=== PATIENT | female | born 1950 | race Caucasian/White ===

== ENCOUNTER 2021-08-04 07:02 | Day surgery (SDC) | payer BC, MEDICAID ==
[2021-07-30 16:28] LABS: BASOPHILS # (AUTO) 0.1 X10'3 (0-0.2); BASOPHILS % (AUTO) 1.1 % (0-1); EOSINOPHILS # (AUTO) 0.2 X10'3 (0-0.9); EOSINOPHILS % (AUTO) 2.4 % (0-6); HEMATOCRIT 38.1 % (35.0-45.0); HEMOGLOBIN 12.4 g/dl (12.0-16.0); LYMPHOCYTES # (AUTO) 2.2 X10'3 (1.1-4.8); LYMPHOCYTES % (AUTO) 29.8 % (21-51); MEAN CORPUSCULAR HEMOGLOBIN 29.4 PG (27.0-31.0); MEAN CORPUSCULAR HGB CONC 32.6 g/dL (33.0-36.5); MEAN PLATELET VOLUME 8.5 FL (7.4-10.4); MONOCYTES # (AUTO) 0.7 X10'3 (0-0.9); MONOCYTES % (AUTO) 10.2 % (2-12); NEUTROPHILS # (AUTO) 4.1 X10'3 (1.8-7.7); NEUTROPHILS % (AUTO) 56.5 % (42-75); PLATELET COUNT 263 X10'3 (140-440); RED BLOOD COUNT 4.23 X10'6 (4.20-5.60); RED CELL DISTRIBUTION WIDTH 14.5 % (11.5-14.5); WHITE BLOOD COUNT 7.3 X10'3 (4.5-11.0)
[2021-07-30 16:41] LABS: PARTIAL THROMBOPLASTIN TIME 26 SECONDS (22-32)
[2021-07-30 16:43] LABS: ALANINE AMINOTRANSFERASE 20 U/L (12-78); ALBUMIN 4.2 G/DL (3.4-5.0); ALBUMIN/GLOBULIN RATIO 1.1 (1.1-1.5); ALKALINE PHOSPHATASE 125 IU/L (46-116); ANION GAP 10 (8-16); ASPARTATE AMINO TRANSFERASE 17 U/L (10-37); BILIRUBIN,TOTAL 0.3 MG/DL (0.1-1.0); BLOOD UREA NITROGEN 17 MG/DL (7-18); BUN/CREATININE RATIO 9.7 (6.6-38.0); CALCIUM 9.2 MG/DL (8.5-10.1); CHLORIDE 104 MMOL/L (99-107); CREATININE 1.75 MG/DL (0.40-0.90); GLUCOSE 114 MG/DL (70-104); POTASSIUM 3.6 MMOL/L (3.5-5.1); SODIUM 144 MMOL/L (135-145); TOTAL PROTEIN 8.1 G/DL (6.4-8.2); eGFR 28 ML/MIN
[2021-08-04] VITALS (8 sets, daily range): BP systolic 116–136; BP diastolic 57–75
[~2021-08-04] VITALS: Ht 157.5 cm; Wt 70.4 kg
[~2021-08-04 07:02] MED LIST: ALBU8.5H17 IH; ASPI-529 PO; ASPI-845 PO; BAC10T PO; CELE-193 PO; CITA20TA28 PO; DIPH25CA83 PO; FLUT16SP2 NS; FURO80TA87 PO; NORCO10T PO; OMEP-84 PO; TRAZ-91 PO
[2021-08-04] MEDS ORDERED: LORazepam 0.5 MG tablet PO PRN (07:25)
[2021-08-04] MEDS ORDERED: normal saline 1,000 ML IV SCH (07:25)
[2021-08-04] MEDS ORDERED: nitroGLYCERIN 0.4mg SUBLingual tab SL PRN (07:25)
[2021-08-04] MEDS ORDERED: diphenhydrAMINE 25mg capsule PO PRN (07:25)
[2021-08-04] MEDS ORDERED: POTA10TA36 (07:32)
[2021-08-04] MEDS ORDERED: CARV6.253 PO (07:32)
[2021-08-04] MEDS ORDERED: BACL20TA PO (07:32)
[2021-08-04] MEDS ORDERED: PANT40TA54 PO (07:36)
[2021-08-04] MEDS ORDERED: FURO40TA4 PO (07:36)
[2021-08-04] MEDS ORDERED: TRAZ150T78 PO (07:36)
[2021-08-04] MEDS ORDERED: AMLO10TA13 PO (07:36)
[2021-08-04] MEDS ORDERED: ATOR40TA72 PO (07:36)
[2021-08-04] MEDS ORDERED: CAL (07:45)
[2021-08-04] MEDS ORDERED: [UNRECOGNIZED DRUG - OTHER] (07:45)
[2021-08-04] MEDS ORDERED: SIME125C97 PO (07:45)
[2021-08-04] MEDS ORDERED: MAG (07:45)
[2021-08-04] MEDS ORDERED: CIME200T12 PO (07:45)
[2021-08-04] MEDS ORDERED: TUMERIC GINGER (07:45)
[2021-08-04] MEDS ORDERED: ZINC (07:45)
[2021-08-04] MEDS ORDERED: LIDOcaine 1% (10mg/ml)w/preservative injection 20ml MDV ONE (08:48)
[2021-08-04] MEDS ORDERED: fentaNYL/PF 50MCG/1 ML 2ML syringe ONE (08:48)
[2021-08-04] MEDS ORDERED: midazolam 1 mg/ML 2ml injection ONE (08:48)
[2021-08-04] MEDS ORDERED: iohexol 350 MG/ML 50ML vial IV ONE (08:48)
[2021-08-04] MEDS ORDERED: iohexol 350MG/ML 100ml bottle IV ONE (08:48)
[2021-08-04] MEDS ORDERED: acetaminophen 325mg tablet PO PRN (10:00)
[2021-08-04] MEDS ORDERED: proCHLORperazine 10 MG/2 ml inj IV PRN (10:00)
[2021-08-04] MEDS ORDERED: OXAZEpam 15mg capsule PO PRN (10:00)
[2021-08-04] MEDS ORDERED: ondansetron/PF 4mg/2ml inj IV PRN (10:00)
[2021-08-04] MEDS ORDERED: HYDROcodone/acetaminophen 10/325mg tab PO PRN (10:00)
[2021-08-04] MEDS ORDERED: HYDROcodone/acetaminophen 5mg/325mg tablet PO PRN (10:00)
[2021-08-04] MEDS ORDERED: normal saline 1000ml 1,000 ML IV SCH (10:00)
== END 2021-08-04 16:15 | disposition home or self-care (01) ==
LOC: SSTAY O 07:02
PROVIDERS: ATTEND Internal Medicine Cardiovascular Disease
DX: R94.39 Abnormal result of other cardiovascular function study (principal); I25.10 Atherosclerotic heart disease of native coronary artery without angina pectoris; J45.909 Unspecified asthma, uncomplicated; F32.9 Major depressive disorder, single episode, unspecified; K21.9 Gastro-esophageal reflux disease without esophagitis; G47.33 Obstructive sleep apnea (adult) (pediatric); F43.10 Post-traumatic stress disorder, unspecified; I10 Essential (primary) hypertension; Z88.8 Allergy status to other drugs, medicaments and biological substances; Z79.01 Long term (current) use of anticoagulants; Z90.710 Acquired absence of both cervix and uterus; Z98.890 Other specified postprocedural states; Z79.899 Other long term (current) drug therapy; Z98.51 Tubal ligation status
CPT/HCPCS: 36415; 71046; 80053; 85025; 85610; 85730; 93458; 99152; C1760; C1769; J1644; J2001; J2250; J3010; J7030; Q0163; Q9967; A4620; A6258

== ENCOUNTER 2023-10-06 08:49 | Day surgery (SDC) | payer BC, MEDICAID ==
[2023-10-02 11:27] LABS: BASOPHILS % (AUTO) 0.7 % (0-1); EOSINOPHILS # (AUTO) 0.1 X10'3 (0-0.9); LYMPHOCYTES # (AUTO) 1.7 X10'3 (1.1-4.8); LYMPHOCYTES % (AUTO) 26.6 % (21-51); MEAN CORPUSCULAR HEMOGLOBIN 27.2 PG (27.0-31.0); MEAN CORPUSCULAR HGB CONC 32.4 g/dL (33.0-36.5); MEAN CORPUSCULAR VOLUME 83.9 FL (78-98); MEAN PLATELET VOLUME 8.7 FL (7.4-10.4); MONOCYTES # (AUTO) 0.9 X10'3 (0-0.9); MONOCYTES % (AUTO) 13.4 % (2-12); NEUTROPHILS # (AUTO) 3.7 X10'3 (1.8-7.7); NEUTROPHILS % (AUTO) 57.3 % (42-75); PRE OP HEMATOCRIT 40.3 % (35.0-45.0); PRE OP PLATELET COUNT 199 X10'3 (140-440); PRE OP WHITE BLOOD COUNT 6.4 10'3 (4.8-10.8); RED CELL DISTRIBUTION WIDTH 20.8 % (11.5-14.5)
[2023-10-02 11:47] LABS: ALBUMIN 3.8 G/DL (3.4-5.0); ALBUMIN/GLOBULIN RATIO 1.1 (1.1-1.5); ALKALINE PHOSPHATASE 108 IU/L (46-116); BLOOD UREA NITROGEN 11 MG/DL (7-18); BUN/CREATININE RATIO 7.7 (10.0-20.0); CALCIUM 9.3 MG/DL (8.5-10.1); CHLORIDE 96 MMOL/L (99-107); CREATININE 1.43 MG/DL (0.40-0.90); PRE OP ALT 22 U/L (30-65); PRE OP ANION GAP 10 (8-16); PRE OP AST 27 U/L (10-37); PRE OP BILIRUB, TOTAL 0.2 MG/DL (0.0-1.0); PRE OP GLUCOSE 125 MG/DL (70-104); PRE OP SODIUM 133 MMOL/L (135-145); TOTAL CARBON DIOXIDE 27.1 MMOL/L (24-32); TOTAL PROTEIN 7.3 G/DL (6.4-8.2); eGFR 36 ML/MIN
[2023-10-02 11:54] LABS: ANISOCYTOSIS 3+; LARGE PLATELETS FEW; PLATELET ESTIMATE NORMAL
[2023-10-02 11:55] LABS: PRE OP POTASSIUM 3.2 MMOL/L (3.4-5.1)
[~2023-10-06] VITALS: Ht 149.9 cm; Wt 63.7 kg
[2023-10-06] VITALS (18 sets, daily range): BP systolic 94–132; BP diastolic 44–82; PULSE 58–77; RESP 10–16; TEMP 95.8–97.8; O2SAT 90–99
[~2023-10-06 08:49] MED LIST changes: +AMLO10TA13 PO; -ASPI-529 PO; -ASPI-845 PO; +ATOR40TA72 PO; -BAC10T PO; +BACL20TA PO; +CIME200T12 PO; -CITA20TA28 PO; -DIPH25CA83 PO; -FLUT16SP2 NS; +FURO40TA4 PO; -FURO80TA87 PO; +NEO EACHEYE; -NORCO10T PO; -OMEP-84 PO; +PANT40TA54 PO; +POLY EACHEYE; +POTA-206 PO; +TRAZ-251 PO; -TRAZ-91 PO; +TRAZ150T78 PO; +[UNRECOGNIZED DRUG - OTHER] EACHEYE; +cefazolin 2gm/D5W 100mL 100 ML IV ONE; +famotidine 20mg tablet PO ONE; +ringers solution, lacted 1,000 ML IV SCH; +tetracaine 1% (10mg/ml) pres. free inj. ONE; +tranexamic acid 650mg tablet PO ONE; +vancomycin/NS 1 GM in NS 250 ML IV ONE
[2023-10-06] MEDS ORDERED: BUPIVAcaine/PF 2.5mg/ml (0.25%) 10ml vial ONE (09:17)
[2023-10-06 10:52] LABS: ISTAT CREATININE 0.9 mg/dL (0.6-1.1); ISTAT HGB 12.6 g/dl (12.0-16.0); ISTAT IONIZED CALCIUM 1.24 mmol/L (1.03-1.32); ISTAT K 3.5 mmol/L (3.5-5.1); POC BUN/CREATININE RATIO 18.9 (6.6-38.0)
--- NOTE | 2023-10-06 11:00 | NUR ---
PT STATES SHE BATHED AND USED BACTROBAN FOR THE LAST 5 DAYS PER TOTAL JOINT REPLACEMENT RECOMMENDATIONS. PT DENIES DECREASED SENSATION TO HER RIGHT LEG, PEDAL PULSE 2+ AND PALPABLE. PT DID NOT WATCH THE DVD REGARDING TOTAL JOINT REPLACEMENT SHE HAS HAD SEVERAL IN THE PAST. Addendum: 10/06/23 at 1507 by Domonique Velarde RN Amended: Links added.
[2023-10-06] MEDS ORDERED: MIDAZolam 1mg/ml 10ml vial ONE (12:45)
[2023-10-06] MEDS ORDERED: desflurane 240ml liquid inh. IH ONE (12:45)
[2023-10-06] MEDS ORDERED: fentaNYL/PF 50MCG/1 ML 2ML syringe ONE ×2 (12:46→14:04)
[2023-10-06] MEDS ORDERED: tranexamic acid 100mg/ml inj. ONE (12:47)
[2023-10-06] MEDS ORDERED: ROPIVAcaine 0.5% (5mg/ml) 30ml vial ONE (12:47)
[2023-10-06] MEDS ORDERED: BUPIVACAINE/MELOXICAM 14 ML VIAL IL ONE (12:48)
[2023-10-06] MEDS ORDERED: propofol inj 20 ML IV ONE (13:36)
[2023-10-06] MEDS ORDERED: ondansetron/PF 4mg/2ml inj ONE (13:41)
[2023-10-06] MEDS ORDERED: LIDOcaine 1%/PF 5ML 10 MG/ML VIAL ONE ×4 (13:41)
[2023-10-06] MEDS ORDERED: acetaminophen 1,000mg/100ml IV 100 ML IV ONE (13:44)
[2023-10-06] MEDS ORDERED: dexamethasone sod phosphate 4mg/ml inj. ONE (13:49)
[2023-10-06] MEDS ORDERED: BUPIVAcaine 2.5mg/ml inj 50ml vial (contains preservative) ONE (15:08)
--- NOTE | 2023-10-06 15:35 | NUR ---
Received from OR via BED, accompanied by Anesthesiologist and report given by TACOS Anesthesiologist. PATIENT WAKING UP, NO S/S OF PAIN, V/S WNL, SCD ON, 20G TO LEFT AC, drsg to RIGHT KNEE C/D/I. GUTIÉRREZ CATHETER DRAINING CLEAR YELLOW URINE. Addendum: 10/06/23 at 1600 by Valentino Denny RN Amended: Links added.
[2023-10-06] MEDS ORDERED: naloxone 0.4 mg/ml inj IV PRN (15:55)
[2023-10-06] MEDS ORDERED: acetaminophen 325mg tablet PO PRN (15:55)
[2023-10-06] MEDS ORDERED: ondansetron/PF 4mg/2ml inj IV PRN (15:55)
[2023-10-06] MEDS ORDERED: diphenhydrAMINE 25mg capsule PO PRN ×2 (15:55)
[2023-10-06] MEDS ORDERED: HYDROmorphone inj. 0.5 MG/0.5 ML DISP.SYRIN IV PRN (15:55)
[2023-10-06] MEDS ORDERED: bisacodyl 10mg suppository rectal RC PRN (15:55)
[2023-10-06] MEDS ORDERED: traZODone 50mg tablet PO PRN (15:55)
[2023-10-06] MEDS ORDERED: magnesium hydroxide 30ml (MOM) UD suspension PO PRN (15:55)
[2023-10-06] MEDS ORDERED: albuterol 2.5 MG/3 ML nebule NEB PRN (15:55)
[2023-10-06] MEDS ORDERED: oxyCODONE IR 5mg (immed. release) tablet PO PRN (15:55)
[2023-10-06] MEDS: potassium cl 20mEq in 1/2 NS 1,000 ML IV SCH ×2 (15:55→17:09)
[2023-10-06] MEDS ORDERED: HYDROmorphone 1 mg/ml syringe IV PRN (15:55)
--- NOTE | 2023-10-06 16:24 | NUR ---
Patient in PACU . I have received report from Jevon and had the opportunity to ask questions and assume patient care.
--- NOTE | 2023-10-06 16:29 | NUR ---
PATIENT HAS MET ALL CRITERIA FOR TRANSFER TO ORTHO FLOOR. VSS. DRESSINGS INTACT. BED LOW, CALL LIGHT PRESENT AND 2 RAILS UP. RN PRESENT TO ACCEPT CARE OF PATIENT AND REPORT HAS BEEN CALLED. ALL QUESTIONS ANSWERED TO ACCEPTING RN. Addendum: 10/06/23 at 1653 by Valentino Denny RN Amended: Links added.
[2023-10-06] MEDS: ceFAZolin/D5W- 1GM premix 50 ML IV SCH ×2 (17:13→23:17)
--- NOTE | 2023-10-06 18:27 | NUR ---
Problems reprioritized. Patient report given, questions answered & plan of care reviewed with Mitzy.
--- NOTE | 2023-10-06 18:30 | NUR ---
Patient in room ORTHO 4013. I have received report from Phoebe MAYORGA and had the opportunity to ask questions and assume patient care.
--- NOTE | 2023-10-06 19:00 | NUR ---
she ate a sandwich and milk and yogurt since a late tray did not arrive Addendum: 10/07/23 at 0126 by Mitzy Reynoso RN Amended: Links added.
[2023-10-06] MEDS ORDERED: vancomycin/NS 1 GM ADD-VANTAGE 250 ML IV SCH (20:00)
[2023-10-06] MEDS ORDERED: atorvastatin 20mg tablet PO SCH (21:00)
[2023-10-06] MEDS ORDERED: traZODone 150mg tablet PO SCH (21:00)
[2023-10-06] MEDS ORDERED: sennosides 8.6mg tablet PO SCH (21:00)
[2023-10-06] MEDS: baclofen 10mg tablet PO SCH (21:16)
[2023-10-06] MEDS: acetaminophen 325mg tablet PO SCH (21:16)
[2023-10-07] VITALS (8 sets, daily range): BP systolic 107–122; BP diastolic 48–56; PULSE 64–79; RESP 16–20; TEMP 97.4–98.6; O2SAT 93–96
[2023-10-07] MEDS: acetaminophen 325mg tablet PO SCH ×3 (01:58→14:38)
[2023-10-07] MEDS: oxyCODONE IR 5mg (immed. release) tablet PO PRN ×3 (04:59→13:22)
[2023-10-07] MEDS: potassium cl 20mEq in 1/2 NS 1,000 ML IV SCH ×2 (05:02→15:55)
--- NOTE | 2023-10-07 06:00 | NUR ---
Report received from Mitzy MAYORGA and assumed care with Art MAYORGA as preceptor. Aubrie MAYORGA Addendum: 10/07/23 at 0948 by Aubrie Rajput RN Amended: Links added.
--- NOTE | 2023-10-07 06:33 | NUR ---
Problems reprioritized. Patient report given, questions answered & plan of care reviewed with Art MAYORGA.
[2023-10-07 06:58] LABS: BASOPHILS % (AUTO) 0.1 % (0-1); EOSINOPHILS % (AUTO) 0 % (0-6); HEMOGLOBIN 8.4 g/dl (12.0-16.0); LYMPHOCYTES # (AUTO) 0.9 X10'3 (1.1-4.8); LYMPHOCYTES % (AUTO) 7.1 % (21-51); MEAN CORPUSCULAR HGB CONC 32.2 g/dL (33.0-36.5); MONOCYTES # (AUTO) 0.6 X10'3 (0-0.9); MONOCYTES % (AUTO) 4.9 % (2-12); NEUTROPHILS # (AUTO) 11.1 X10'3 (1.8-7.7); NEUTROPHILS % (AUTO) 87.9 % (42-75); PLATELET COUNT 169 X10'3 (140-440); RED BLOOD COUNT 3.09 X10'6 (4.20-5.60); WHITE BLOOD COUNT 12.6 X10'3 (4.5-11.0)
[2023-10-07 07:26] LABS: ANION GAP 7 (8-16); CHLORIDE 103 MMOL/L (99-107); POTASSIUM 4.3 MMOL/L (3.5-5.1); SODIUM 137 MMOL/L (135-145); TOTAL CARBON DIOXIDE 27.4 MMOL/L (24-32)
[2023-10-07 07:43] LABS: ANISOCYTOSIS 2+; MICROCYTOSIS 1+; PLATELET ESTIMATE NORMAL
[2023-10-07] MEDS ORDERED: POLY OP SCH (08:00)
[2023-10-07] MEDS ORDERED: potassium chloride 10mEq ER tablet PO SCH (08:00)
[2023-10-07] MEDS ORDERED: [UNRECOGNIZED DRUG - OTHER] OP SCH (08:00)
[2023-10-07] MEDS ORDERED: amLODIPine 5mg tablet PO SCH (08:00)
[2023-10-07] MEDS ORDERED: NEO OP SCH (08:00)
[2023-10-07] MEDS ORDERED: famotidine 20mg tablet PO SCH (08:00)
[2023-10-07] MEDS ORDERED: furosemide 40mg tablet PO SCH (08:00)
[2023-10-07] MEDS ORDERED: pantoprazole 40mg Tablet.DR PO SCH (08:00)
[2023-10-07] MEDS ORDERED: celeCOXIB 100mg capsule PO SCH (08:00)
[2023-10-07] MEDS: baclofen 10mg tablet PO SCH ×2 (08:21→13:19)
[2023-10-07] MEDS ORDERED: aspirin 325mg tablet PO SCH (08:30)
--- NOTE | 2023-10-07 09:16 | NUR ---
Per EMR pt POD #1 s/p right TKA. Written high protein education with ONS coupons and RD contact information mailed to patient's address found in EMR d/t short staffing. Will continue to follow and provide verbal education as able. Addendum: 10/07/23 at [address] Amended: Links added.
--- NOTE | 2023-10-07 17:07 | NUR ---
Preceptee documentation: I have reviewed and agree with all interventions, assessments performed and documented by Jelly Georges RN. Preceptee Medication Administration: For this medication-pass time frame, all medication were reviewed, dispensed, administered and documented per hospital policy by Jelly Georges RN.
--- NOTE | 2023-10-07 19:47 | NUR ---
PATIENT DISCHARGED HOME WITH ALL HER BELONGINGS AND DISCHARGE PAPERWORK IN HER BAG. SHE WAS TAKEN TO HER DAUGHTER'S CAR IN W/C AND HELPED INTO THE CAR WITHOUT DIFFICULTY.
--- NOTE | 2023-10-07 19:52 | NUR ---
Problems reprioritized. Patient report given, questions answered & plan of care reviewed with JORGE.
== END 2023-10-07 19:53 | disposition home or self-care (01) ==
LOC: PAS 08:49 → EDSTATUS 11:45 → ORTHO 4S 16:30 → PAS 10-07 19:53
PROVIDERS: ATTEND Orthopaedic Surgery
DX: M17.11 Unilateral primary osteoarthritis, right knee (principal); G89.4 Chronic pain syndrome; J45.909 Unspecified asthma, uncomplicated; I12.9 Hypertensive chronic kidney disease with stage 1 through stage 4 chronic kidney disease, or unspecified chronic kidney disease; N18.30 Chronic kidney disease, stage 3 unspecified; F32.A Depression, unspecified; K21.9 Gastro-esophageal reflux disease without esophagitis; G89.18 Other acute postprocedural pain; Z79.899 Other long term (current) drug therapy; Z79.82 Long term (current) use of aspirin; Z96.652 Presence of left artificial knee joint; Z96.611 Presence of right artificial shoulder joint; Z96.612 Presence of left artificial shoulder joint; Z98.890 Other specified postprocedural states; Z90.710 Acquired absence of both cervix and uterus; Z90.49 Acquired absence of other specified parts of digestive tract; Z98.51 Tubal ligation status; Z88.8 Allergy status to other drugs, medicaments and biological substances; Z83.3 Family history of diabetes mellitus; Z82.49 Family history of ischemic heart disease and other diseases of the circulatory system; Z82.3 Family history of stroke
CPT/HCPCS: 20985; 27447; 36415; 64447; 80047; 80051; 80053; 85025; 87081; 97116; 97161; C1713; C1776; J0131; J0690; J1100; J2250; J2405; J2704; J2795; J3010; J3370; J3480; J3490; J7030; J7120; Z7506; Z7508; Z7512; 85008; 97530; A4215; A4615; A7000; C1758; G0378

== ENCOUNTER 2025-07-23 14:39 | Inpatient (IN) | payer BC, MEDICAID ==
[~2025-07-23] VITALS: Ht 162.6 cm; Wt 65.0 kg
[~2025-07-23 14:39] MED LIST changes: -cefazolin 2gm/D5W 100mL 100 ML IV ONE; -famotidine 20mg tablet PO ONE; -ringers solution, lacted 1,000 ML IV SCH; -tetracaine 1% (10mg/ml) pres. free inj. ONE; -tranexamic acid 650mg tablet PO ONE; -vancomycin/NS 1 GM in NS 250 ML IV ONE
[2025-07-23] MEDS ORDERED: charcoal/sorbitol 25GM/120ML oral SUSPension PO ONE (15:00)
[2025-07-23 15:24] LABS: MEAN PLATELET VOLUME 8.6 FL (7.4-10.4); RED CELL DISTRIBUTION WIDTH 14.4 % (11.5-14.5)
[2025-07-23] MEDS: charcoal, activated 50 GM/240 ML bottle PO ONE (15:34)
[2025-07-23 15:48] LABS: CREATININE 1.18 MG/DL (0.40-0.90); TOTAL CARBON DIOXIDE 29.9 MMOL/L (24-32); eCRCL 34 ML/MIN; eGFR 44 ML/MIN
--- NOTE | 2025-07-23 16:04 | Physician Documentation ---
History of Present Illness ~ Chief Complaint: Overdose Stated Complaint: INGESTION ERROR Time Seen by MD: 15:54 Primary Medical Doctor: Dolores MERRITT Mode of Arrival: POV, Ambulatory HPI This very pleasant 75-year-old female presents to the ED after accidentally ingesting 17 tabs of Tylenol extra-strength 500 mg had a proximally 1420 this afternoon. She was complaining of bad reflux and thought she was taking her normal pills but ingested the wrong pill container. She is very forthcoming about this accident and denies any intention to harm herself. Denies any symptoms at this time and says she feels fine. Day of Ingestion: Jul 23, 2025 Medication Reconciliation Allergies: Coded Allergies: ketorolac (Verified Adverse Reaction, Severe, UPSET STOMACH, 04/11/22) HEARTBURN, ABDOMINAL PAIN ibuprofen (Unverified Adverse Reaction, Unknown, UPSET STOMACH, 04/11/22) naproxen (Unverified Adverse Reaction, Unknown, UPSET STOMACH, 04/11/22) Scheduled Amlodipine Besylate (Amlodipine Besylate), 1 TAB PO DAILY, (Reported) Atorvastatin Calcium (Atorvastatin Calcium), 1 TAB PO HS, (Reported) Baclofen (Baclofen), 1 TAB PO TID, (Reported) Celecoxib* (Celebrex*), 2 CAP PO DAILY, (Reported) Cimetidine (Cimetidine), 400 MG PO QID, (Reported) Furosemide (Furosemide), 1 TAB PO QAM, (Reported) Pantoprazole Sodium (Pantoprazole Sodium), 1 TAB PO DAILY, (Reported) Potassium Chloride (K-Dur), 1 TAB PO DAILY, (Reported) Trazodone Hcl (Trazodone Hcl), 1 TAB PO HS, (Reported) [Ramiro/Poly/Dexopth ], 1 APPLIC EACHEYE DAILY, (Reported) Scheduled PRN Albuterol Sulfate (Proair Hfa), 2 PUFFS IH Q6H PRN for SOB or wheezing, (Reported) Trazodone HCl (Trazodone HCl), 1 TAB PO HS PRN for sleep, (Reported) Past Medical History Past Medical History: No Pertinent History Alcohol Use: None Drug Use: none Review of Systems All Other Systems at this time: Reviewed and Negative ROS As stated above in the HPI, otherwise all systems are reviewed and negative. Physical Exam Vital Signs: Temperature: 98.3, Heart Rate: 66, Respiratory Rate: 20, BP: 97/66, Pulse Oximetry: 94, Weight: 65.000 Oxygen Flow Rate: 0 Physical Exam General: Alert, no apparent distress. Respiratory: Lungs clear, no respiratory distress. Chest: No accessory muscle use. Cardiovascular: Regular rate and rhythm, no murmurs. Gastrointestinal: Soft, nontender, nondistended. Bowels sounds present. Neurologic: Oriented x4. Psychiatric: Normal mood and affect. Skin: Normal color, warm and dry. No edema, no ecchymosis. General Appearance: WD/WN Progress Results/Orders Results/Orders Orders - FERNANDO MATTHEW [employer]ISE SERVICES MANAGER Page Hospitalist (07/23/25 ) Completed Orders - FERNANDO MATTHEW ENTERPRISE SERVICES MANAGER Activated Charcoal Suspension (Actidose- (07/23/25 15:15) Acetylcysteine 200mg/Ml 4ml (Mucomyst So (07/23/25 16:10) Medications Received in ER Medications (Trade) Dose Ordered Sig/Juhi Route PRN Reason Start Time Stop Time Status Last Admin Dose Admin (Actidose-Aqua suspension) 50 gm ONCE ONCE PO 07/23/25 15:15 07/23/25 15:18 DC 07/23/25 15:34 50 GM (MucoMYST solution) 600 mg ONCE ONCE PO 07/23/25 16:10 07/23/25 16:11 DC 07/23/25 17:15 600 MG Vital Signs 07/23/25 07/23/25 07/23/25 07/23/25 14:46 15:00 15:44 15:44 Temp 98.3 Pulse 78 66 Resp 18 20 14 B/P (MAP) 81/41 90/60 (70) 97/66 (76) Pulse Ox 94 94 O2 Flow Rate 0 Laboratory Tests Test 07/23/25 15:10 White Blood Count 7.9 Red Blood Count 4.02 L Hemoglobin 12.5 Hematocrit 37.1 Mean Corpuscular Volume 92.3 Mean Corpuscular Hemoglobin 31.1 H Mean Corpuscular Hemoglobin Concent 33.7 Red Cell Distribution Width 14.4 Platelet Count 212 Mean Platelet Volume 8.6 Neutrophils (%) (Auto) 57.3 Lymphocytes (%) (Auto) 30.6 Monocytes (%) (Auto) 10.1 Eosinophils (%) (Auto) 1.1 Basophils (%) (Auto) 0.9 Neutrophils # (Auto) 4.5 Lymphocytes # (Auto) 2.4 Monocytes # (Auto) 0.8 Eosinophils # (Auto) 0.1 Basophils # (Auto) 0.1 CBC Comment Sodium Level 140 Potassium Level 4.1 Chloride Level 102 Carbon Dioxide Level 29.9 Anion Gap 8 Blood Urea Nitrogen 22 H Creatinine 1.18 H Estimated GFR/1.73 m2 44 BUN/Creatinine Ratio 18.6 Glucose Level 99 Calcium Level 9.1 Total Bilirubin 0.4 Aspartate Amino Transf (AST/SGOT) 14 Alanine Aminotransferase (ALT/SGPT) 16 Alkaline Phosphatase 75 Total Protein 7.1 Albumin 3.8 Globulin 3.3 Albumin/Globulin Ratio 1.2 Chemistry Comments Acetaminophen Level 163.6 *H Medical Decision Making Findings This very pleasant 75-year-old female received oral charcoal solution upon arrival as she was within the time window of acetaminophen ingestion. Poison control indicated this is appropriate and if the acetaminophen level is over 142 administer mucomyst.. She remains asymptomatic but her acetaminophen level was over 160 therefore Mucomyst was administered.. Based on the assumption that her Tylenol level we will increase I am going to request hospital admission Differential Dx:Considerations: Include: Alcohol abuse, Anxiety, Bipolar disorder, Conversion disorder, Delirium, Depression, Drug Overdose-Accidental, Drug Overdose-Intentional, Encephalopathy, Hallucinations, Homicidal, Liver failure, Panic disorder, Personality disorder, Renal failure, Respiratory failure, Schizophrenia, Substance abuse, Suicidal attempt, Suidical gesture, Other Departure Disposition: ADMITTED INPATIENT Impression: Primary Impression: Overdose of non-opiate analgesics of undetermined intent Condition: Improved Referrals: NO PRIMARY CARE PROVIDER (PCP) Signature Scribe Signature: j Attestation: Scribed for Fernando Matthew [employer] Support by Fernando Roman NP . 07/23/25 17:03 FERNANDO MATTHEW NP Jul 23, 2025 16:04
[2025-07-23] MEDS ORDERED: magnesium sulf-water 2g/50mL 50 ML IV PRN (17:20)
[2025-07-23] MEDS: normal saline 1000ml 1,000 ML IV ONE ×2 (17:20→18:20)
[2025-07-23] MEDS ORDERED: ondansetron 4mg rapidly disintigrating tab PO PRN (17:20)
[2025-07-23] MEDS ORDERED: magnesium hydroxide 30ml (MOM) UD suspension PO PRN (17:20)
[2025-07-23] MEDS ORDERED: potassium Cl 40MEQ/1/2NS 520ml 520 ML IV PRN (17:20)
[2025-07-23] MEDS ORDERED: ondansetron/PF 4mg/2ml inj IV PRN (17:20)
[2025-07-23] MEDS ORDERED: magnesium sulf-water 4G/100mL 100 ML IV PRN (17:20)
[2025-07-23] MEDS ORDERED: potassium Cl 20 mEq SR tablet PO PRN ×2 (17:20)
--- NOTE | 2025-07-23 17:31 | HISTORY AND PHYSICAL ---
History & Physical Providers to CC ~ History of Present Illness Reason for Admit\Complaint: Ingestion error, acetaminophen toxicity History of Present Illness Jadyn Steward is a a 75-year-old female with a past medical history of osteoarthritis, hypertension, hyperlipidemia who presented to the ED after accidentally ingesting 17 tabs of extra-strength Tylenol 500 mg approximately at 1420 today. Patient states she took the pills from the wrong bottle where she keeps her maintenance medications. Patient denies SI, depression, chest pain, shortness of breath, palpitations, abdominal pain, fever, chills, dysuria. Patient denies prior [place]/CAD, CVA, DVT/PE, or GIB. Diagnostic findings were notable for elevated acetaminophen level at 161. Poison control was called in ED. Patient is to be admitted for further workups and treatment. Allergies: Coded Allergies: ketorolac (Verified Adverse Reaction, Severe, UPSET STOMACH, 04/11/22) HEARTBURN, ABDOMINAL PAIN ibuprofen (Unverified Adverse Reaction, Unknown, UPSET STOMACH, 04/11/22) naproxen (Unverified Adverse Reaction, Unknown, UPSET STOMACH, 04/11/22) Home Medications Home Medications Active Reported [Ramiro/Poly/Dexopth ] 1 Applic EACHEYE DAILY Trazodone HCl 50 Mg Tablet 1 Tab PO HS PRN Cimetidine 200 Mg Tablet 400 Mg PO QID Atorvastatin Calcium 40 Mg Tablet 1 Tab PO HS Trazodone Hcl 150 Mg Tablet 1 Tab PO HS MAY TAKE 100MG ADDITIONAL IF NEEDED FOR SLEEP Pantoprazole Sodium 40 Mg Tablet.dr 1 Tab PO DAILY Amlodipine Besylate 10 Mg Tablet 1 Tab PO DAILY Furosemide 40 Mg Tablet 1 Tab PO QAM Baclofen 20 Mg Tablet 1 Tab PO TID K-Dur (Potassium Chloride) 10 Meq Tab.prt.sr 1 Tab PO DAILY Celebrex* (Celecoxib) 100 Mg Capsule 2 Cap PO DAILY Proair Hfa (Albuterol Sulfate) 8.5 Gm Hfa.aer.ad 2 Puffs IH Q6H PRN Past Medical History Past Medical History Hypertension Hyperlipidemia Atrial flutter Past Surgical History Surgical History Comment Orthopedic surgeries Osteoarthritis Past Social History Social History Comment Alcohol: Denies Tobacco: Denies Illicit drug use: Denies Living situation: Lives at home with her daughter ROS ROS Other than positives in HPI, all 14 review of systems are negative Exam Vitals: Vital Signs Date Time Temp Pulse Resp B/P (MAP) Pulse Ox O2 Delivery O2 Flow Rate FiO2 07/23/25 15:44 66 14 97/66 (76) 94 0 07/23/25 14:46 98.3 General: A&Ox 3, NAD HEENT: Normocephalic, PERRLA Neck: Supple, trachea midline, no JVD Chest: Clear to auscultation bilaterally Cardiovascular: RRR, S1&S2 Abdomen: Soft and nontender Extremities: No cyanosis/clubbing/or edema Central Nervous System: CN II-XII intact, no focal deficits Musculoskeletal: No paraspinal muscle tenderness, no muscle spasm Skin: Warm and intact Diagnostic Data Last Recorded Lab Results: 07/23/25 1510 07/23/25 1510 Additional Plan Assessment & Plan Acetaminophen overdose by accident Acetaminophen toxicity Osteoarthritis Hypertension Hyperlipidemia Hx atrial flutter -poison control called in ED, received acetylcysteine, charcoal -start IVF, follow serial LFT and acetaminophen level; pending med rec DVT/VTE prophylaxis: Heparin Code status: Full code I spent a total of 35 minutes discussing Advanced Care Planning measures with the patient. Advance care planning: Discussed with patient the importance of advance care planning in case of emergent situation. We discussed various resuscitative measures/ ACP with the patient at the time of admission. Patient voiced understanding and patient has decided on a full code status Date of Service: Jul 23, 2025 Billing Provider: CARMEN ORDOÑEZ Common Visit Codes: [id number] INP/OBS CARE (HIGH) Secondary Visit Codes: [id number] CARE PLAN 30 MINUTES CARMEN ORDOÑEZ Jul 23, 2025 17:31
[2025-07-23] MEDS ORDERED: hydrALAZINE 20mg/ml inj. IV PRN (18:05)
[2025-07-23] MEDS: docusate sod 100mg capsule PO SCH (20:00)
[2025-07-23] MEDS: normal saline 1000ml 1,000 ML IV SCH (20:15)
[2025-07-23] MEDS: K and/or MAG REPLACEMENT MC SCH (20:22)
[2025-07-23 22:00] VITALS: BP 123/63; PULSE 60; RESP 18; TEMP 96.6; O2SAT 94
[2025-07-24 02:00] VITALS: BP 114/56; PULSE 62; RESP 17; TEMP 97.1; O2SAT 93
[2025-07-24 06:00] VITALS: BP 131/62; PULSE 62; RESP 15; TEMP 97; O2SAT 97
[2025-07-24 06:47] LABS: MEAN PLATELET VOLUME 8.9 FL (7.4-10.4); RED CELL DISTRIBUTION WIDTH 14.0 % (11.5-14.5)
[2025-07-24 06:54] LABS: CREATININE 1.06 MG/DL (0.40-0.90); eCRCL 38 ML/MIN; eGFR 50 ML/MIN
[2025-07-24 06:55] LABS: TOTAL CARBON DIOXIDE 26.9 MMOL/L (24-32)
[2025-07-24 10:55] VITALS: BP 123/52; PULSE 72; RESP 18; TEMP 97.6; O2SAT 95
--- NOTE | 2025-07-24 11:30 | PROGRESS NOTE ---
Daily Progress Note Providers to CC ~ Antibiotic Timeout Antibiotic Ordered?: No Subjective No acute events overnight. Patient examined at bedside. No new complaints, not in acute distress. Patient denies chest pain, sob, palpitations, abdominal pain, n/v/d. Vss, labs unremarkable. Tele sinus in 80s. Objective Vital Signs Date Time Temp Pulse Resp B/P (MAP) Pulse Ox O2 Delivery O2 Flow Rate FiO2 07/24/25 10:55 97.6 72 18 123/52 (75) 95 Room Air 07/23/25 20:30 0 Result Diagram: 07/24/2518 07/24/25617 Physical Exam General: Generalized weakness, A&Ox 3, NAD HEENT: Normocephalic, PERRLA Neck: Supple, trachea midline, no JVD Chest: Clear to auscultation bilaterally Cardiovascular: RRR, S1&S2 GI: Soft and nontender Extremities: No cyanosis/clubbing/or edema WOOL HAT FLANGER: CN II-XII intact, no focal deficits Musculoskeletal: No paraspinal muscle tenderness, no muscle spasm Skin: Warm and intact Problem\Assessment\Plan Assessment & Plan Acetaminophen overdose by accident Acetaminophen toxicity Osteoarthritis Hypertension Hyperlipidemia Hx atrial flutter -poison control called in ED, received acetylcysteine, charcoal -start IVF, follow serial LFT and acetaminophen level -07/24: acetaminophen level normalized DVT/VTE prophylaxis: Heparin Code status: Full code Date of Service: Jul 24, 2025 Billing Provider: CARMEN ORDOÑEZ Common Visit Codes: [id number] INP/OBS CARE(HIGH) CARMEN ORDOÑEZ Jul 24, 2025 11:30
[2025-07-24 18:00] VITALS: BP 103/69; PULSE 85; RESP 20; TEMP 97.4; O2SAT 97
[2025-07-24 20:00] VITALS: RESP 20; O2SAT 97
[2025-07-24 22:00] VITALS: BP 136/63; PULSE 90; RESP 12; TEMP 97.8; O2SAT 94
[2025-07-25 02:00] VITALS: BP 130/79; PULSE 90; RESP 18; TEMP 97.6; O2SAT 94
[2025-07-25] MEDS: mag hydrox/Alum hydrox/simeth 30ml oral suspension PO PRN (04:19)
[2025-07-25 05:29] LABS: MEAN PLATELET VOLUME 8.5 FL (7.4-10.4); RED CELL DISTRIBUTION WIDTH 14.2 % (11.5-14.5)
[2025-07-25 06:00] VITALS: BP 146/74; PULSE 79; RESP 22; TEMP 97.7; O2SAT 94
[2025-07-25 08:00] VITALS: RESP 22; O2SAT 94
[2025-07-25 10:44] LABS: CREATININE 0.79 MG/DL (0.40-0.90); TOTAL CARBON DIOXIDE 27.7 MMOL/L (24-32); eCRCL 52 ML/MIN; eGFR 71 ML/MIN
--- NOTE | 2025-07-25 14:46 | DISCHARGE SUMMARY ---
Discharge Summary Providers to CC ~ Discharge Summary Admission Diagnosis: acetaminophen overdose, acetaminophen toxicity, LIZET Hospital Course DATE OF ADMISSION: 07/23/25 DATE OF DISCHARGE: 07/25/25 Discharge Diagnosis\Comment: Acetaminophen overdose by accident Acetaminophen toxicity Prerenal LIZET 2/2 dehydration/vasomotor nephropathy- POA Osteoarthritis Hypertension Hyperlipidemia Hx atrial flutter Operations\Procedures: None Consultants: None Complications: None Condition on DC: Stable Continued Medications: Albuterol Sulfate (Proair Hfa) 8.5 Gm Hfa.aer.ad 2 PUFFS IH Q6H PRN for SOB or wheezing, INHALER Atorvastatin Calcium (Atorvastatin Calcium) 40 Mg Tablet 1 TAB PO HS Baclofen (Baclofen) 20 Mg Tablet 1 TAB PO TID Celecoxib* (Celebrex*) 100 Mg Capsule 2 CAP PO DAILY, CAP 3 Refills Cimetidine (Cimetidine) 200 Mg Tablet 400 MG PO QID [Ramiro/Poly/Dexopth ] () 1 APPLIC EACHEYE DAILY Pantoprazole Sodium (Pantoprazole Sodium) 40 Mg Tablet.dr 1 TAB PO DAILY Trazodone HCl (Trazodone HCl) 50 Mg Tablet 1 TAB PO HS PRN for sleep, TAB Discontinued Medications: Furosemide (Furosemide) 40 Mg Tablet 1 TAB PO QAM Potassium Chloride (K-Dur) 10 Meq Tab.prt.sr 1 TAB PO DAILY Trazodone Hcl (Trazodone Hcl) 150 Mg Tablet 1 TAB PO HS MAY TAKE 100MG ADDITIONAL IF NEEDED FOR SLEEP Discharge Summary: History of Present Illness Jadyn Steward is a a 75-year-old female with a past medical history of osteoarthritis, hypertension, hyperlipidemia who presented to the ED after accidentally ingesting 17 tabs of extra-strength Tylenol 500 mg approximately at 1420 today. Patient states she took the pills from the wrong bottle where she keeps her maintenance medications. Patient denies SI, depression, chest pain, shortness of breath, palpitations, abdominal pain, fever, chills, dysuria. Patient denies prior [place]/CAD, CVA, DVT/PE, or GIB. Diagnostic findings were notable for elevated acetaminophen level at 161. Poison control was called in ED. Patient is to be admitted for further workups and treatment. Hospital Course Patient was treated with intravenous fluids, N-acetylcysteine and was admitted on telemetry. Serial labs revealed normalizing acetaminophen level and unremarkable LFT. Patient did not experience further complications throughout the entire hospital stay\and remained clinically and hemodynamically stable. Patient was seen and examined on the day of discharge. On day of discharge, vss and labs notable for resolving acute kidney injury. Telemetry remained sinus in 80s. All labs, diagnostic workups, discharge plan discussed with patient in details during visit before discharge. All questions and concerns answered to the best of my professional knowledge. Patient ambulates independently without requiring assistance. Patient is to be discharged with HH and to follow-up with PCP within 2 weeks. Physical Exam General: A&Ox 3, NAD HEENT: Normocephalic, PERRLA Neck: Supple, trachea midline, no JVD Chest: Clear to auscultation bilaterally Cardiovascular: RRR, S1&S2 GI: Soft and nontender Extremities: No cyanosis/clubbing/or edema LITIGATION PARALEGAL: CN II-XII intact, no focal deficits Musculoskeletal: No paraspinal muscle tenderness, no muscle spasm Skin: Warm and intact *Problems/Diagnosis: (1) Overdose of non-opiate analgesics of undetermined intent Status: Acute (2) LIZET (acute kidney injury) Status: Acute Total Time Spent on D/C: > 30 Minutes Date of Service: Jul 25, 2025 Billing Provider: CARMEN ORDOÑEZ Common Visit Codes: 74815-XDU/OBS DISCH DAY >30min CARMEN ORDOÑEZ Jul 25, 2025 14:46
== END 2025-07-25 11:33 | disposition home health service (06) | DRG 917 ==
LOC: ER 14:40 → ED HOLD 17:25 → PCU 3S 20:55
PROVIDERS: ADMIT Nurse Practitioner Family; ATTEND Nurse Practitioner Family
DX: T39.1X1A Poisoning by 4-Aminophenol derivatives, accidental (unintentional), initial encounter (principal); N17.0 Acute kidney failure with tubular necrosis; I10 Essential (primary) hypertension; E86.0 Dehydration; E78.5 Hyperlipidemia, unspecified; Z88.8 Allergy status to other drugs, medicaments and biological substances; Z79.899 Other long term (current) drug therapy; Y92.89 Other specified places as the place of occurrence of the external cause
CPT/HCPCS: 36415; 80053; 80329; 83735; 84450; 84460; 85025; 87081; 96360; 99285; A6258; G0378; J3490; J7030